=== PATIENT | male | born 1965 | race Caucasian/White ===

== ENCOUNTER 2020-09-25 22:41 | Emergency (ER) | payer BC ==
[~2020-09-25] VITALS: Ht 177.8 cm; Wt 113.6 kg
[~2020-09-25 22:41] MED LIST: ASPIRIN 81M81 MG/TA2 PO; FLOMAX 0.40.4 MG/CAP PO; PREDNISONE20 MG PO; TOPROL XL 50MG50 MG PO
[2020-09-25 22:46] VITALS: BP 115/77; TEMP 98.1
[2020-09-25 23:25] VITALS: PULSE 78
== END 2020-09-25 23:25 | disposition home or self-care (01) ==
LOC: COL.ER 22:41
DX: M79.604 Pain in right leg (principal); M79.605 Pain in left leg; I10 Essential (primary) hypertension; Z88.6 Allergy status to analgesic agent; Z79.82 Long term (current) use of aspirin